=== PATIENT | female | born 1975 | race Caucasian/White ===

== ENCOUNTER 2017-07-06 06:14 | Day surgery (SDC) | payer BC ==
[2017-07-05 16:12] VITALS: BMI 30.1
[2017-07-06] MEDS ORDERED: Diprivan 20 ML ONE (07:34)
--- NOTE | 2017-07-06 13:21 | ECHO ---
TRANSESOPHAGEAL ECHOCARDIOGRAPH REPORT: DATE OF SERVICE: 07/06/2017. PREPROCEDURE DIAGNOSIS: Cryptogenic stroke and patent foramen ovale versus airspace disease. SUMMARY: A transesophageal echo was planned for evaluation of shunt in the setting of having had a cryptogenic stroke. The Anesthesiology Department provided sedation for the patient. Please see their notes fo r details. After adequate sedation was achieved, the transesophageal probe was inserted into the huseyin th and into the esophagus with no issues. Multiplanar views were then obtained. The left ventricle is normal size and normal function. LV function estimated at 55-60%. The left atrium is normal size. The right atrium is normal size. The interatrial septum has a small patent foramen ovale with mostly left to right shunt by color Dopp ler. Agitated saline study shows a negative contours in the right atrium with bubbles flowing throug h the PFO into the left side every 5th or 7th beat. The right ventricle is normal size with normal function. The right atrium is normal size. The aortic valve has three cusps, no stenosis or regurgitation. The mitral valve has mild mitral valve prolapse with no stenosis, mild MR. Tricuspid valve is structurally normal. There is mild TR. The pulmonary valve is structurally normal, no stenosis or regurgitation. Thoracic aorta is without aneurysmal dilatations or significant atherosclerotic disease. CONCLUSIONS: 1. Normal systolic function, ejection fraction 55-60%. 2. Mild mitral regurgitation with minimal mitral valve prolapse. 3. Mild tricuspid regurgitation. 4. A small patent foramen ovale with bidirectional shunt. POS: [facility]
== END 2017-07-06 09:30 | disposition home or self-care (01) ==
LOC: CCL 06:14
PROVIDERS: ATTEND Internal Medicine Cardiovascular Disease
DX: Q21.1 Atrial septal defect (principal); I34.0 Nonrheumatic mitral (valve) insufficiency; I07.1 Rheumatic tricuspid insufficiency; Z88.8 Allergy status to other drugs, medicaments and biological substances; Z79.82 Long term (current) use of aspirin; Z79.899 Other long term (current) drug therapy; Z98.890 Other specified postprocedural states
CPT/HCPCS: 93312; J2704